=== PATIENT | female | born 1950 | race Hispanic/Latino ===

== ENCOUNTER 2017-08-05 20:42 | Emergency (ER) | payer OTHER, MEDICARE ==
[~2017-08-05 20:42] MED LIST: AMLO5TAB2 PO; ASCO500C6 PO; CANA1TAB PO; CLON0.5T23 PO; DESI25TA16 PO; GEMF600T3 PO; GLIP5TAB11 PO; LEVO100T12 PO; LISI10TA7 PO; MELO-108 PO; PANT40TA25 PO; PREG75 PO; SAXA5TAB PO; SIMV20TA6 PO; TRAZ-144 PO
[2017-08-05] MEDS ORDERED: ACETAMINOPHEN EXTRA STRENGTH 500 MG TABLET ONE (20:55)
== END 2017-08-05 21:20 | disposition home or self-care (01) ==
LOC: EDH 20:42
DX: J11.1 Influenza due to unidentified influenza virus with other respiratory manifestations (principal); E11.9 Type 2 diabetes mellitus without complications; E78.5 Hyperlipidemia, unspecified; I10 Essential (primary) hypertension; E07.9 Disorder of thyroid, unspecified; Z98.890 Other specified postprocedural states

== ENCOUNTER 2017-11-19 10:27 | Emergency (ER) | payer OTHER, MEDICARE ==
[~2017-11-19 10:27] MED LIST changes: -TRAZ-144 PO; +TRAZ-185 PO
[2017-11-19] MEDS ORDERED: ONDANSETRON HCL MDV 20ML 2 MG/ML VIAL ONE (10:50)
[2017-11-19] MEDS ORDERED: MORPHINE SULFATE 4 MG/1ML SYG ONE (10:51)
[2017-11-19 11:28] LABS: CREATININE 0.7 mg/dL (0.5-1.5); POTASSIUM 4.5 mmol/L (3.5-5.1)
== END 2017-11-19 12:38 | disposition home or self-care (01) ==
LOC: EDH 10:27
DX: S73.102A Unspecified sprain of left hip, initial encounter (principal); S83.92XA Sprain of unspecified site of left knee, initial encounter; M62.838 Other muscle spasm; E11.9 Type 2 diabetes mellitus without complications; E78.5 Hyperlipidemia, unspecified; I10 Essential (primary) hypertension; E07.9 Disorder of thyroid, unspecified; Z98.890 Other specified postprocedural states; W18.39XA Other fall on same level, initial encounter; Y93.01 Activity, walking, marching and hiking; Y92.89 Other specified places as the place of occurrence of the external cause; Y99.8 Other external cause status
CPT/HCPCS: 36415; 73502; 73562; 80048; 96374; 96375; 99285; J2270

== ENCOUNTER 2018-04-21 13:18 | Emergency (ER) | payer OTHER, MEDICARE ==
[~2018-04-21 13:18] MED LIST changes: -AMLO5TAB2 PO; +AMLO5TAB7 PO; -GEMF600T3 PO; +GEMF600T4 PO
[2018-04-21 14:18] LABS: APPEARANCE,URINE Clear (CLEAR); BILIRUBIN,URINE Negative (NEGATIVE); COLOR,URINE Yellow (YELLOW); GLUCOSE, URINE (UA) >=1000 mg/dL (NEGATIVE); KETONES,URINE Negative (NEGATIVE); LEUKOCYTE ESTERASE ,URINE Negative (NEGATIVE); NITRATE,URINE Positive (NEGATIVE); OCCULT BLOOD,URINE Negative (NEGATIVE); PH,URINE 5.5 (5.0-8.0); PROTEIN,URINE Negative (NEGATIVE); UROBILINOGEN,URINE 0.2 mg/dL (0.2-1.0)
[2018-04-21] MEDS ORDERED: KETOROLAC TROMETHAMINE 30MG/ML ONE (14:27)
[2018-04-21 14:48] LABS: BACTERIA,URINE Few /HPF (None Seen); RBC,URINE None Seen /HPF (0-1); SQUAMOUS EPITHELIAL CELL,UR 0-2 /HPF (0-2); WBC,URINE 0-1 /HPF (0-1)
== END 2018-04-21 14:34 | disposition home or self-care (01) ==
LOC: EDH 13:18
DX: N39.0 Urinary tract infection, site not specified (principal); E11.9 Type 2 diabetes mellitus without complications; K21.9 Gastro-esophageal reflux disease without esophagitis; E78.5 Hyperlipidemia, unspecified; M19.90 Unspecified osteoarthritis, unspecified site; I10 Essential (primary) hypertension; Z98.890 Other specified postprocedural states
CPT/HCPCS: 81001; 96372; 99283; J1885

== ENCOUNTER → 2018-06-23 | Outpatient (CLI) | payer MEDICARE | END | disposition home or self-care (01) | LOC: RAH 09:06 | PROVIDERS: ATTEND Family Medicine | DX: Z12.31 Encounter for screening mammogram for malignant neoplasm of breast (principal) | CPT/HCPCS: 77067 ==

== ENCOUNTER 2018-09-07 09:00 | Emergency (ER) | payer MEDICARE ==
[~2018-09-07 09:00] MED LIST changes: -AMLO5TAB7 PO; +AMLO5TAB9 PO; -GEMF600T4 PO; +GEMF600T5 PO
[2018-09-07 09:24] LABS: BASOPHILS % (AUTO) 0.8 % (0.0-5.0); EOSINOPHILS % (AUTO) 2.1 % (0.0-8.0); LYMPHOCYTES % (AUTO) 26.6 % (21.0-51.0); MEAN CORPUSCULAR HEMOGLOBIN 30.8 pg (27.0-33.0); MEAN CORPUSCULAR HGB CONC 34.6 g/dL (32.0-36.0); MEAN CORPUSCULAR VOLUME 89.2 fL (79-99); MONOCYTES % (AUTO) 10.5 % (3.0-13.0); NUCLEATED RED BLOOD CELLS 0.1 % (0.0-0.19); PLATELET COUNT (AUTO) 187 K/uL (130-400); RED BLOOD CELL COUNT(AUTO) 4.15 MIL/uL (4.00-5.50); RED CELL DISTRIBUTION WIDTH 13.1 % (11.0-15.5); WHITE BLOOD COUNT (AUTO) 5.6 K/uL (4.8-10.8)
[2018-09-07 09:31] LABS: CREATININE 0.8 mg/dL (0.5-1.5); POTASSIUM 4.1 mmol/L (3.5-5.1)
[2018-09-07 09:36] LABS: ALBUMIN 3.6 g/dL (3.5-5.0); BILIRUBIN,TOTAL 0.7 mg/dL (0.2-1.0)
[2018-09-07] MEDS ORDERED: DEXAMETHASONE SOD PHOSPHATE 10MG/ML 1ML VIAL ONE (10:09)
[2018-09-07] MEDS ORDERED: BENZONATATE 100 MG CAPSULE PO ONE (10:09)
[2018-09-07] MEDS ORDERED: IPRATROPIUM/ALBUTEROL SULFATE 3 ML SOLUTION IH ONE (10:21)
[2018-09-07] MEDS ORDERED: CEFTRIAXONE SODIUM 1 GM ONE (10:38)
[2018-09-07] MEDS ORDERED: SODIUM CHLORIDE 0.9% 100 ML IV ONE (10:38)
[2018-09-07] MEDS ORDERED: AZITHROMYCIN 250 MG TABLET PO ONE (10:38)
== END 2018-09-07 12:23 | disposition home or self-care (01) ==
LOC: EDH 09:00
DX: S46.012A Strain of muscle(s) and tendon(s) of the rotator cuff of left shoulder, initial encounter (principal); S46.011A Strain of muscle(s) and tendon(s) of the rotator cuff of right shoulder, initial encounter; J18.9 Pneumonia, unspecified organism; E11.65 Type 2 diabetes mellitus with hyperglycemia; I10 Essential (primary) hypertension; E78.5 Hyperlipidemia, unspecified; K21.9 Gastro-esophageal reflux disease without esophagitis; M19.90 Unspecified osteoarthritis, unspecified site; E07.9 Disorder of thyroid, unspecified; Z79.4 Long term (current) use of insulin; Z98.890 Other specified postprocedural states; X58.XXXA Exposure to other specified factors, initial encounter; Y93.89 Activity, other specified; Y92.89 Other specified places as the place of occurrence of the external cause; Y99.8 Other external cause status
CPT/HCPCS: 36415; 71045; 80053; 83605; 85025; 87804 ×2; 94640; 96374; 96375; 99284; J0696; J1100; 96376

== ENCOUNTER → 2018-10-10 | Outpatient (CLI) | payer OTHER, MEDICARE | END | disposition home or self-care (01) | LOC: RAH 11:30 | PROVIDERS: ATTEND Family Medicine | DX: M19.011 Primary osteoarthritis, right shoulder (principal); M25.411 Effusion, right shoulder; M65.821 Other synovitis and tenosynovitis, right upper arm; M75.91 Shoulder lesion, unspecified, right shoulder | CPT/HCPCS: 73221 ==

== ENCOUNTER 2019-04-18 22:58 | Emergency (ER) | payer OTHER, MEDICARE ==
[~2019-04-18 22:58] MED LIST changes: +ATOR20TA PO; +CALC-20 PO; -CLON0.5T23 PO; -GEMF600T5 PO; +HYDR-4457 PO; +INSLAN SQ; +MIRA50TA PO; -PANT40TA25 PO; -PREG75 PO; +PRIM1POW PO; +RANI150C4 PO; -SIMV20TA6 PO; -TRAZ-185 PO; +VITA1CAP50 PO
[2019-04-19] MEDS ORDERED: DiphenhydrAMINE HCL 50 MG/ML VIAL ONE (00:10)
[2019-04-19] MEDS ORDERED: PROCHLORPERAZINE EDISYLATE 10 MG/2 ML VIAL ONE (00:11)
[2019-04-19] MEDS ORDERED: SODIUM CHLORIDE 0.9% 1000ML 1,000 ML IV ONE (00:12)
[2019-04-19 00:24] LABS: EOSINOPHILS % (AUTO) 4.6 % (0.0-8.0); HEMATOCRIT 33.8 % (36-48); LYMPHOCYTES % (AUTO) 39.7 % (21.0-51.0); MEAN CORPUSCULAR HGB CONC 34.2 g/dL (32.0-36.0); MEAN CORPUSCULAR VOLUME 87.7 fL (79-99); NEUTROPHILS % (AUTO) 46.7 % (40.0-77.0); NUCLEATED RED BLOOD CELLS 0.1 % (0.0-0.19); PLATELET COUNT (AUTO) 193 K/uL (130-400); RED BLOOD CELL COUNT(AUTO) 3.85 MIL/uL (4.00-5.50); RED CELL DISTRIBUTION WIDTH 13.5 % (11.0-15.5); WHITE BLOOD COUNT (AUTO) 5.6 K/uL (4.8-10.8)
[2019-04-19 00:45] LABS: CREATININE 0.9 mg/dL (0.5-1.5); POTASSIUM 3.9 mmol/L (3.5-5.1)
[2019-04-19 00:50] LABS: ALBUMIN 3.6 g/dL (3.5-5.0); BILIRUBIN,TOTAL 0.4 mg/dL (0.2-1.0); TOTAL PROTEIN, SERUM 8.1 g/dL (6.0-8.3)
== END 2019-04-19 01:49 | disposition home or self-care (01) ==
LOC: EDH 22:58
DX: G43.909 Migraine, unspecified, not intractable, without status migrainosus (principal); K21.9 Gastro-esophageal reflux disease without esophagitis; E11.9 Type 2 diabetes mellitus without complications; E78.5 Hyperlipidemia, unspecified; I10 Essential (primary) hypertension; M19.90 Unspecified osteoarthritis, unspecified site; E07.9 Disorder of thyroid, unspecified; Z79.4 Long term (current) use of insulin
CPT/HCPCS: 36415; 70450; 71045; 80053; 84484; 85025; 93005; 96374; 96375; 99285; J0780; J1200; J7030

== ENCOUNTER → 2020-01-18 | Outpatient (CLI) | payer OTHER, MEDICARE ==
[~2020-01-18] MED LIST changes: +CALC-1219 PO; -CALC-20 PO
== END | disposition home or self-care (01) ==
LOC: OIH 10:22
PROVIDERS: ATTEND Family Medicine
DX: M47.816 Spondylosis without myelopathy or radiculopathy, lumbar region (principal); M47.818 Spondylosis without myelopathy or radiculopathy, sacral and sacrococcygeal region; M48.061 Spinal stenosis, lumbar region without neurogenic claudication; M41.86 Other forms of scoliosis, lumbar region; M25.78 Osteophyte, vertebrae; G95.89 Other specified diseases of spinal cord
CPT/HCPCS: 72100; 72220

== ENCOUNTER → 2020-10-01 | Outpatient (CLI) | payer OTHER, MEDICARE ==
[~2020-10-01] MED LIST changes: +AMLO-257 PO; -AMLO5TAB9 PO; +LISI10TA24 PO; -LISI10TA7 PO
== END | disposition home or self-care (01) ==
LOC: RAH 09:30
PROVIDERS: ATTEND Family Medicine
DX: Z12.31 Encounter for screening mammogram for malignant neoplasm of breast (principal)
CPT/HCPCS: 77067

== ENCOUNTER 2021-02-24 15:04 | Observation (INO) | payer OTHER, MEDICARE ==
[~2021-02-24] VITALS: Ht 147.3 cm; Wt 87.1 kg
[2021-02-24 15:09] VITALS: BP 119/42
[2021-02-24] MEDS ORDERED: 0.9%NACL 1000ML 1,000 ML IV ONE (16:00)
[2021-02-24] MEDS ORDERED: ACETAMINOPHEN 325 MG TAB PO ONE (16:00)
[2021-02-24 16:03] LABS: BASOPHILS % (AUTO) 0.3 % (0.0-5.0); EOSINOPHILS % (AUTO) 0.2 % (0.0-8.0); HEMATOCRIT 36.9 % (36-48); LYMPHOCYTES % (AUTO) 30.1 % (21.0-51.0); MEAN CORPUSCULAR HEMOGLOBIN 30.7 pg (27.0-33.0); MEAN CORPUSCULAR HGB CONC 33.6 g/dL (32.0-36.0); MEAN CORPUSCULAR VOLUME 91.3 fL (79-99); MONOCYTES % (AUTO) 6.6 % (3.0-13.0); NEUTROPHILS % (AUTO) 62.5 % (40.0-77.0); PLATELET COUNT (AUTO) 150 K/uL (130-400); RED BLOOD CELL COUNT(AUTO) 4.04 MIL/uL (4.00-5.50); RED CELL DISTRIBUTION WIDTH 13.8 % (11.0-15.5)
[2021-02-24 16:12] LABS: CREATININE 1.2 mg/dL (0.5-1.5); POTASSIUM 4.4 mmol/L (3.5-5.1)
[2021-02-24 16:15] LABS: INR 1.02 (0.85-1.15); PROTHROMBIN TIME 11.1 SEC (9.6-11.6)
[2021-02-24 16:16] LABS: PARTIAL THROMBOPLASTIN TIME 31.3 SEC (26.3-35.5)
[2021-02-24 16:17] LABS: ALBUMIN 3.4 g/dL (3.5-5.0); BILIRUBIN,TOTAL 0.6 mg/dL (0.2-1.0); TOTAL PROTEIN, SERUM 7.7 g/dL (6.0-8.3)
[2021-02-24 18:00] VITALS: BP 105/41
[2021-02-24] MEDS ORDERED: ONDANSETRON 4MG INJ IV PRN (18:30)
[2021-02-24] MEDS ORDERED: ACETAMINOPHEN 325 MG TAB PO PRN ×2 (18:30)
[2021-02-24] MEDS ORDERED: LACTULOSE 20 GM/30 ML UDCUP PO PRN (18:30)
[2021-02-24] MEDS ORDERED: DOXYCYCLINE 100MG+NS 250ML 250 ML IV SCH (18:30)
[2021-02-24] MEDS ORDERED: CEFTRIAXONE 1G VIAL IV SCH (18:30)
[2021-02-24] MEDS ORDERED: MAG/ALUM/SIMETH 30 ML UDCUP PO PRN (18:30)
[2021-02-24] MEDS ORDERED: ZOLPIDEM TARTRATE 5 MG TAB PO PRN (18:30)
[2021-02-24] MEDS ORDERED: NITROGLYCERIN 0.4 MG SL TAB SL PRN (18:30)
[2021-02-24] MEDS ORDERED: GUAIFENESIN-DM 200/20 MG 10 ML PO PRN (18:30)
[2021-02-24 19:00] VITALS: BP 113/40
[2021-02-24] MEDS ORDERED: DEXTROSE 50%-WATER 50 ML DISP.SYRIN IV PRN (19:00)
[2021-02-24] MEDS ORDERED: KCL 20 MEQ ERTAB PO PRN (19:00)
[2021-02-24] MEDS ORDERED: GLUCAGON 1MG KIT 1 MG ML IM PRN (19:00)
[2021-02-24] MEDS ORDERED: POTASSIUM CHLORIDE 10MEQ/100ML 100 ML IV PRN (19:00)
[2021-02-24] MEDS ORDERED: POTASSIUM CHLORIDE 10% ELIXIR 20 MEQ/15 ML UDCUP PO PRN (19:00)
[2021-02-24] MEDS ORDERED: LABETALOL 20MG SYG IV PRN (19:00)
[2021-02-24 20:35] LABS: ABG BASE EXCESS -3.7 mmol/L (-2.0-3.0); ABG HCO3 20.5 mmol/L (21.0-28.0); ABG OXYGEN SATURATION 95.2 % (95.0-99.0); ABG PCO2 35 mmHg (32-45)
[2021-02-24 22:00] VITALS: BP 112/5
[2021-02-24] MEDS: IPRATROPIUM/ALBUTEROL SULFATE 3 ML SOLUTION IH SCH (22:00)
[2021-02-24] MEDS: SOLU-MEDROL 40MG VIAL IVP SCH (23:00)
[2021-02-24] MEDS: ATORVASTATIN 20 MG TABLET PO SCH (23:00)
[2021-02-24] MEDS: BENZONATATE 100 MG CAPSULE PO SCH (23:00)
[2021-02-24] MEDS: 0.9% NACL 250ML 250 ML IV SCH (23:00)
[2021-02-24] MEDS: DOXYCYCLINE 100MG+NS 250ML IV SCH (23:14)
[2021-02-25] VITALS (7 sets, daily range): BP systolic 110–132; BP diastolic 44–76
[2021-02-25] MEDS: SOLU-MEDROL 40MG VIAL IVP SCH ×2 (01:00→07:32)
[2021-02-25] MEDS: IPRATROPIUM/ALBUTEROL SULFATE 3 ML SOLUTION IH SCH ×6 (01:18→22:59)
[2021-02-25 06:21] LABS: BASOPHILS % (AUTO) 0.3 % (0.0-5.0); HEMATOCRIT 37.8 % (36-48); LYMPHOCYTES % (AUTO) 24.8 % (21.0-51.0); MEAN CORPUSCULAR HEMOGLOBIN 29.9 pg (27.0-33.0); MEAN CORPUSCULAR HGB CONC 32.8 g/dL (32.0-36.0); MEAN CORPUSCULAR VOLUME 91.1 fL (79-99); MONOCYTES % (AUTO) 2.2 % (3.0-13.0); NEUTROPHILS % (AUTO) 72.4 % (40.0-77.0); PLATELET COUNT (AUTO) 138 K/uL (130-400); RED BLOOD CELL COUNT(AUTO) 4.15 MIL/uL (4.00-5.50); RED CELL DISTRIBUTION WIDTH 13.4 % (11.0-15.5); WHITE BLOOD COUNT (AUTO) 3.2 K/uL (4.8-10.8)
[2021-02-25 06:26] LABS: HEMOGLOBIN A1C 7.7 % (4.0-6.0)
[2021-02-25 06:43] LABS: ALBUMIN 3.2 g/dL (3.5-5.0); BILIRUBIN,TOTAL 0.5 mg/dL (0.2-1.0); CREATININE 0.9 mg/dL (0.5-1.5); CRP QUANTITATIVE 38.7 mg/L (0.00-9.0); POTASSIUM 4.5 mmol/L (3.5-5.1); THYROID STIMULATING HORMONE 0.69 uIU/mL (0.36-3.74); TOTAL PROTEIN, SERUM 7.8 g/dL (6.0-8.3)
[2021-02-25] MEDS: DOXYCYCLINE 100MG+NS 250ML IV SCH (07:32)
[2021-02-25] MEDS: 0.9% NACL 250ML 250 ML IV SCH (07:32)
[2021-02-25] MEDS: FAMOTIDINE 20MG VIAL IV SCH (08:34)
[2021-02-25] MEDS: BENZONATATE 100 MG CAPSULE PO SCH ×3 (08:34→19:54)
[2021-02-25] MEDS: ENOXAPARIN SODIUM 40 MG/0.4 ML SYRINGE SQ SCH (08:34)
[2021-02-25] MEDS ORDERED: FAMO20TA8 PO (08:43)
[2021-02-25] MEDS ORDERED: LEVO112T7 PO (08:43)
[2021-02-25] MEDS ORDERED: CHOL4PAC21 PO (08:43)
[2021-02-25] MEDS ORDERED: CARB1TAB23 PO (08:43)
[2021-02-25] MEDS ORDERED: ERGO500093 PO (08:43)
[2021-02-25] MEDS: CARBIDOPA PO SCH ×3 (12:07→20:09)
[2021-02-25] MEDS: LEVODOPA PO SCH ×3 (12:07→20:09)
[2021-02-25] MEDS: ATORVASTATIN 20 MG TABLET PO SCH (19:55)
[2021-02-25] MEDS: INSULIN HUMULIN R 100 UNIT/ML 3ML SQ SCH (20:40)
[2021-02-25] MEDS ORDERED: INSULIN GLARGINE 100 UNITS/ML 10 ML VIAL SQ SCH (21:00)
[2021-02-25] MEDS ORDERED: DOXYCYCLINE 100MG+NS 250ML 250 ML IV SCH (21:00)
[2021-02-25] MEDS ORDERED: DOXYCYCLINE 100MG+NS 250ML IV SCH (21:00)
[2021-02-25] MEDS ORDERED: SOLU-MEDROL 125MG VIAL IVP SCH (21:00)
[2021-02-25] MEDS ORDERED: INSULIN HUMULIN R 100 UNIT/ML 3ML SQ ONE (23:00)
[2021-02-25] MEDS ORDERED: CEFTRIAXONE 1G VIAL IV SCH (23:00)
[2021-02-25] MEDS ORDERED: INSULIN LISPRO 100 UNIT/ML 3ML SQ SCH (23:00)
[2021-02-26] MEDS: IPRATROPIUM/ALBUTEROL SULFATE 3 ML SOLUTION IH SCH ×4 (02:09→15:23)
[2021-02-26 03:48] VITALS: BP 118/48
[2021-02-26 04:37] LABS: HEMATOCRIT 35.6 % (36-48); MEAN CORPUSCULAR HEMOGLOBIN 29.8 pg (27.0-33.0); MEAN CORPUSCULAR HGB CONC 33.4 g/dL (32.0-36.0); RED CELL DISTRIBUTION WIDTH 13.2 % (11.0-15.5); WHITE BLOOD COUNT (AUTO) 6.6 K/uL (4.8-10.8)
[2021-02-26 04:57] LABS: MAGNESIUM 1.8 mg/dL (1.80-2.40); POTASSIUM 3.6 mmol/L (3.5-5.1)
[2021-02-26] MEDS: MAGNESIUM 2GM PREMIX 50ML 50 ML IV PRN ×3 (05:30→07:41)
[2021-02-26] MEDS: INSULIN HUMULIN R 100 UNIT/ML 3ML SQ SCH ×2 (06:02→13:19)
[2021-02-26 08:00] VITALS: BP 120/88
[2021-02-26] MEDS: LEVODOPA PO SCH ×2 (09:00→13:00)
[2021-02-26] MEDS ORDERED: LEVOTHYROXINE 112 MCG TABLET PO SCH (09:00)
[2021-02-26] MEDS: CARBIDOPA PO SCH ×2 (09:00→13:00)
[2021-02-26] MEDS ORDERED: SOLU-MEDROL 40MG VIAL IVP SCH (09:00)
[2021-02-26] MEDS: BENZONATATE 100 MG CAPSULE PO SCH ×2 (09:23→13:18)
[2021-02-26] MEDS: ENOXAPARIN SODIUM 40 MG/0.4 ML SYRINGE SQ SCH (09:24)
[2021-02-26] MEDS: FAMOTIDINE 20MG VIAL IV SCH (09:24)
[2021-02-26 10:40] VITALS: BP 120/88
[2021-02-26 12:00] VITALS: BP 118/55
[2021-02-26] MEDS ORDERED: CEFTRIAXONE 1G VIAL IVP SCH (12:30)
[2021-02-26] MEDS ORDERED: PRED20TA3 PO (14:14)
[2021-02-26] MEDS ORDERED: ASPI-1443 PO (14:14)
[2021-02-26] MEDS ORDERED: AMOX-429 PO (14:14)
[2021-02-26 15:38] LABS: APPEARANCE,URINE CLOUDY (CLEAR); BILIRUBIN,URINE NEGATIVE (NEGATIVE); COLOR,URINE YELLOW (YELLOW); GLUCOSE, URINE (UA) >=1000 mg/dL (NEGATIVE); KETONES,URINE NEGATIVE (NEGATIVE); LEUKOCYTE ESTERASE ,URINE NEGATIVE (NEGATIVE); NITRATE,URINE NEGATIVE (NEGATIVE); OCCULT BLOOD,URINE NEGATIVE (NEGATIVE); PH,URINE 5.5 (5.0-8.0); PROTEIN,URINE TRACE mg/dL (NEGATIVE); UROBILINOGEN,URINE 0.2 mg/dL (0.2-1.0)
[2021-02-26 15:53] LABS: BACTERIA,URINE None Seen /HPF (None Seen); RBC,URINE None Seen /HPF (0-1); YEAST,URINE BUDDING Moderate /HPF (None Seen)
[2021-02-26 16:00] VITALS: BP 121/59
[2021-03-04] MEDS ORDERED: ERGOCALCIFEROL (VITAMIN D2) 50,000 UNIT CAPSULE PO SCH (09:00)
== END 2021-02-26 17:49 | disposition home or self-care (01) ==
LOC: EDH 15:04 → EDHIP 17:53 → 2AH 02-25 08:39
PROVIDERS: ADMIT Internal Medicine Critical Care Medicine; ATTEND Internal Medicine Critical Care Medicine
DX: U07.1 COVID-19 (principal); R25.1 Tremor, unspecified; E11.65 Type 2 diabetes mellitus with hyperglycemia; E78.00 Pure hypercholesterolemia, unspecified; I10 Essential (primary) hypertension; E03.9 Hypothyroidism, unspecified; J06.9 Acute upper respiratory infection, unspecified; R53.1 Weakness; B96.20 Unspecified Escherichia coli [E. coli] as the cause of diseases classified elsewhere; N39.0 Urinary tract infection, site not specified; R09.02 Hypoxemia; Z90.49 Acquired absence of other specified parts of digestive tract; Z79.899 Other long term (current) drug therapy; Z98.890 Other specified postprocedural states; Z79.4 Long term (current) use of insulin; Z79.890 Hormone replacement therapy
CPT/HCPCS: 36415 ×3; 36600; 71045; 71250; 80048; 80053 ×2; 81001; 82550; 82728; 82803; 82948 ×6; 83036; 83605; 83615; 83735; 83880; 84145; 84443; 85025 ×2; 85027; 85378; 85384; 85610; 85730; 86140; 86900; 86901; 87040 ×2; 87077; 87088; 87186; 87635; 87804 ×2; 93005; 93970; 94640 ×9; 94664; 94760 ×2; 96361; 96365; 96366 ×2; 96367; 96372 ×2; 96375 ×2; 96376 ×2; 99285; C9803; G0378 ×45; J0696 ×2; J1650 ×2; J1815 ×4; J2920 ×3; J3475; J3490 ×4

== ENCOUNTER 2021-11-09 11:22 | Emergency (ER) | payer OTHER, MEDICARE ==
[~2021-11-09] VITALS: Ht 149.9 cm; Wt 78.9 kg
[~2021-11-09 11:22] MED LIST changes: -AMLO-257 PO; +AMOX-429 PO; -ASCO500C6 PO; +ASPI-1443 PO; -ATOR20TA PO; -CALC-1219 PO; -CANA1TAB PO; +CARB1TAB23 PO; -DESI25TA16 PO; +ERGO500093 PO; +FAMO20TA8 PO; -GLIP5TAB11 PO; -HYDR-4457 PO; -INSLAN SQ; -LEVO100T12 PO; +LEVO112T7 PO; -LISI10TA24 PO; -MELO-108 PO; -MIRA50TA PO; +PRED20TA3 PO; -PRIM1POW PO; -RANI150C4 PO; -SAXA5TAB PO; -VITA1CAP50 PO
[2021-11-09 11:53] LABS: BASOPHILS % (AUTO) 0.2 % (0.0-5.0); EOSINOPHILS % (AUTO) 0.6 % (0.0-8.0); HEMATOCRIT 36.9 % (36-48); LYMPHOCYTES % (AUTO) 30.3 % (21.0-51.0); MEAN CORPUSCULAR HEMOGLOBIN 29.7 pg (27.0-33.0); MEAN CORPUSCULAR HGB CONC 33.6 g/dL (32.0-36.0); MEAN CORPUSCULAR VOLUME 88.5 fL (79-99); MONOCYTES % (AUTO) 10.1 % (3.0-13.0); NEUTROPHILS % (AUTO) 58.5 % (40.0-77.0); PLATELET COUNT (AUTO) 199 K/uL (130-400); RED BLOOD CELL COUNT(AUTO) 4.17 MIL/uL (4.00-5.50); RED CELL DISTRIBUTION WIDTH 12.7 % (11.0-15.5); WHITE BLOOD COUNT (AUTO) 8.7 K/uL (4.8-10.8)
[2021-11-09 12:04] LABS: POTASSIUM 4.9 mmol/L (3.5-5.1)
[2021-11-09 12:13] LABS: ALBUMIN 3.3 g/dL (3.5-5.0); BILIRUBIN,TOTAL 0.6 mg/dL (0.2-1.0); TOTAL PROTEIN, SERUM 8.1 g/dL (6.0-8.3)
[2021-11-09] MEDS ORDERED: IPRATROPIUM/ALBUTEROL SULFATE 3 ML SOLUTION IH SCH (12:30)
[2021-11-09] MEDS ORDERED: ALBUTEROL 0.083% 2.5 MG/3 ML INH IH SCH (13:00)
[2021-11-09] MEDS ORDERED: GUAIFENESIN-CODEINE 5 ML SYRUP PO SCH (14:00)
[2021-11-09] MEDS ORDERED: PRED5SOL PO (14:44)
[2021-11-09] MEDS ORDERED: AUD IH (14:44)
[2021-11-09] MEDS ORDERED: DOXY100C5 PO (14:44)
[2021-11-09] MEDS ORDERED: BENZ-39 PO (14:45)
[2021-11-09 15:06] VITALS: BP 145/84
== END 2021-11-09 15:07 | disposition home or self-care (01) ==
LOC: EDH 11:22
DX: J06.9 Acute upper respiratory infection, unspecified (principal); Z20.822 Contact with and (suspected) exposure to COVID-19; E11.9 Type 2 diabetes mellitus without complications; E78.00 Pure hypercholesterolemia, unspecified; I10 Essential (primary) hypertension; E05.90 Thyrotoxicosis, unspecified without thyrotoxic crisis or storm; G20 Parkinson's disease; Z79.82 Long term (current) use of aspirin; Z79.899 Other long term (current) drug therapy; Z98.890 Other specified postprocedural states
CPT/HCPCS: 36415; 71045; 80053; 83880; 84484; 85025; 87635; 87804 ×2; 87880; 93005; 94640 ×2; 99285; C9803

== ENCOUNTER → 2022-09-13 | Outpatient (CLI) | payer OTHER, MEDICARE ==
[~2022-09-13] MED LIST changes: +AUD IH; +BENZ-39 PO; -CARB1TAB23 PO; +CARB1TAB38 PO; +DOXY100C5 PO; +PRED5SOL PO
== END | disposition home or self-care (01) ==
LOC: SHCH 14:00
PROVIDERS: ATTEND Internal Medicine
DX: R07.9 Chest pain, unspecified (principal); I10 Essential (primary) hypertension; E78.5 Hyperlipidemia, unspecified; E11.9 Type 2 diabetes mellitus without complications
CPT/HCPCS: 93306

== ENCOUNTER → 2022-09-17 | Outpatient (CLI) | payer OTHER, MEDICARE ==
[~2022-09-17] MED LIST changes: +REGADENOSON 0.4 MG/5 ML PF SYG IVP SCH
== END | disposition home or self-care (01) ==
LOC: SHCH 08:01
PROVIDERS: ATTEND Internal Medicine
DX: R94.39 Abnormal result of other cardiovascular function study (principal); R07.9 Chest pain, unspecified
CPT/HCPCS: 78452; 96374; 93017; J2785; A9500 ×2

== ENCOUNTER 2022-10-15 15:15 | Emergency (ER) | payer OTHER, MEDICARE ==
[~2022-10-15] VITALS: Ht 149.9 cm; Wt 85.7 kg
[~2022-10-15 15:15] MED LIST changes: -REGADENOSON 0.4 MG/5 ML PF SYG IVP SCH
[2022-10-15 15:18] VITALS: BP 162/78
[2022-10-15 16:21] LABS: BASOPHILS % (AUTO) 0.5 % (0.0-5.0); HEMATOCRIT 35.3 % (36-48); LYMPHOCYTES % (AUTO) 38.4 % (21.0-51.0); MEAN CORPUSCULAR HEMOGLOBIN 30.1 pg (27.0-33.0); MEAN CORPUSCULAR VOLUME 88.5 fL (79-99); NEUTROPHILS % (AUTO) 48.9 % (40.0-77.0); PLATELET COUNT (AUTO) 188 K/uL (130-400); RED BLOOD CELL COUNT(AUTO) 3.99 MIL/uL (4.00-5.50); RED CELL DISTRIBUTION WIDTH 13.2 % (11.0-15.5); WHITE BLOOD COUNT (AUTO) 5.5 K/uL (4.8-10.8)
[2022-10-15 16:42] LABS: ALBUMIN 3.4 g/dL (3.5-5.0); POTASSIUM 4.1 mmol/L (3.5-5.1); TOTAL PROTEIN, SERUM 7.7 g/dL (6.0-8.3)
[2022-10-15 16:55] LABS: APPEARANCE,URINE CLEAR (CLEAR); BILIRUBIN,URINE NEGATIVE (NEGATIVE); COLOR,URINE COLORLESS (YELLOW); GLUCOSE, URINE (UA) >=1000 mg/dL (NEGATIVE); KETONES,URINE NEGATIVE (NEGATIVE); LEUKOCYTE ESTERASE ,URINE 75 Leu/uL (NEGATIVE); NITRATE,URINE NEGATIVE (NEGATIVE); OCCULT BLOOD,URINE MODERATE (NEGATIVE); PH,URINE 5.5 (5.0-8.0); PROTEIN,URINE NEGATIVE (NEGATIVE); UROBILINOGEN,URINE 0.2 mg/dL (0.2-1.0)
[2022-10-15] MEDS ORDERED: 0.9%NACL 1000ML 1,000 ML IV ONE (17:00)
[2022-10-15 17:05] LABS: BACTERIA,URINE FEW /HPF (None Seen); MUCUS,URINE RARE LPF (None Seen); SQUAMOUS EPITHELIAL CELL,UR RARE /HPF (0-2); WBC,URINE 26-50 /HPF (0-1)
[2022-10-15 17:22] LABS: ABG BASE EXCESS -0.8 mmol/L (-2.0-3.0); ABG HCO3 23.6 mmol/L (21.0-28.0); ABG OXYGEN SATURATION 96.5 % (95.0-99.0); ABG PCO2 38 mmHg (32-45)
== END 2022-10-15 19:14 | disposition home or self-care (01) ==
LOC: EDH 15:15
DX: E11.65 Type 2 diabetes mellitus with hyperglycemia (principal); E78.00 Pure hypercholesterolemia, unspecified; I10 Essential (primary) hypertension; E03.9 Hypothyroidism, unspecified; G20 Parkinson's disease; Z79.899 Other long term (current) drug therapy; Z79.82 Long term (current) use of aspirin; Z98.890 Other specified postprocedural states; Z90.49 Acquired absence of other specified parts of digestive tract; Z96.653 Presence of artificial knee joint, bilateral; Z90.710 Acquired absence of both cervix and uterus
CPT/HCPCS: 99284; 96360; 71045; 96361; 84484; 80053; 82803; 85025; 87077; 87088; 87186; 82010; 81001; 36415; 93005; 36600; 82948; J7030

== ENCOUNTER → 2022-11-05 | Outpatient (CLI) | payer OTHER, MEDICARE | END | disposition home or self-care (01) | LOC: RAH 12:52 | PROVIDERS: ATTEND Family Medicine | DX: Z12.31 Encounter for screening mammogram for malignant neoplasm of breast (principal) | CPT/HCPCS: 77067 ==

== ENCOUNTER 2023-10-15 11:08 | Emergency (ER) | payer OTHER, MEDICARE ==
[~2023-10-15] VITALS: Ht 149.9 cm; Wt 83.9 kg
[~2023-10-15 11:08] MED LIST changes: -AMOX-429 PO; -DOXY100C5 PO; -PRED20TA3 PO; -PRED5SOL PO
[2023-10-15 12:28] LABS: BASOPHILS # (AUTO) 0.04 K/uL (0.00-0.20); BASOPHILS % (AUTO) 0.6 % (0.0-5.0); EOSINOPHILS # (AUTO) 0.21 K/uL (0.00-0.70); EOSINOPHILS % (AUTO) 3.4 % (0.0-8.0); HEMATOCRIT 31.3 % (36-48); IMMATURE GRANULOCYTE ABSOLUTE 0.05 K/uL (0-1); LYMPHOCYTES # (AUTO) 2.3 K/uL (1.0-4.8); LYMPHOCYTES % (AUTO) 36.5 % (21.0-51.0); MEAN CORPUSCULAR HEMOGLOBIN 30.9 pg (27.0-33.0); MEAN CORPUSCULAR HGB CONC 34.8 g/dL (32.0-36.0); MEAN CORPUSCULAR VOLUME 88.7 fL (79-99); MONOCYTES # (AUTO) 0.6 K/uL (0.1-1.0); MONOCYTES % (AUTO) 9.3 % (3.0-13.0); NEUTROPHILS # (AUTO) 3.1 K/uL (1.8-7.7); NEUTROPHILS % (AUTO) 49.4 % (40.0-77.0); PLATELET COUNT (AUTO) 275 K/uL (130-400); RED BLOOD CELL COUNT(AUTO) 3.53 MIL/uL (4.00-5.50); RED CELL DISTRIBUTION WIDTH 12.2 % (11.0-15.5); WHITE BLOOD COUNT (AUTO) 6.3 K/uL (4.8-10.8)
[2023-10-15 12:41] LABS: CREATININE 0.7 mg/dL (0.5-1.5); POTASSIUM 3.8 mmol/L (3.5-5.1)
[2023-10-15 12:43] LABS: INR 0.97 (0.85-1.15); PROTHROMBIN TIME 11.3 SEC (9.6-11.6)
[2023-10-15 12:44] LABS: PARTIAL THROMBOPLASTIN TIME 30.7 SEC (26.3-35.5)
[2023-10-15 13:04] LABS: APPEARANCE,URINE CLOUDY (CLEAR); BILIRUBIN,URINE SMALL mg/dL (NEGATIVE); COLOR,URINE RED (YELLOW); GLUCOSE, URINE (UA) NEGATIVE (NEGATIVE); KETONES,URINE NEGATIVE (NEGATIVE); LEUKOCYTE ESTERASE ,URINE LARGE Leu/uL (NEGATIVE); NITRATE,URINE POSITIVE (NEGATIVE); OCCULT BLOOD,URINE LARGE (NEGATIVE); PH,URINE 6.5 (5.0-8.0); PROTEIN,URINE 100 mg/dL (NEGATIVE)
[2023-10-15 13:20] LABS: ADD UA MICROSCOPIC YES
[2023-10-15 13:23] LABS: BACTERIA,URINE Few /HPF (None Seen); RBC,URINE TNTC /HPF (0-1); SQUAMOUS EPITHELIAL CELL,UR Few /HPF (0-2); WBC,URINE TNTC /HPF (0-1)
[2023-10-15] MEDS: 0.9% NACL 500ML IV.SOLN 500 ML IV ONE (13:31)
[2023-10-15] MEDS ORDERED: CEPH500T PO (15:24)
[2023-10-15 15:25] VITALS: BP 150/64; PULSE 71; RESP 17; O2SAT 96
[2023-10-15] MEDS: CEFTRIAXONE 1G VIAL IVPB ONE (15:38)
== END 2023-10-15 15:53 | disposition home or self-care (01) ==
LOC: EDH 11:08
DX: N13.9 Obstructive and reflux uropathy, unspecified (principal); M19.90 Unspecified osteoarthritis, unspecified site; E11.9 Type 2 diabetes mellitus without complications; E78.00 Pure hypercholesterolemia, unspecified; E03.9 Hypothyroidism, unspecified; Z90.49 Acquired absence of other specified parts of digestive tract
CPT/HCPCS: 99285; 74176; 96374; 96361; 80048; 85025; 85610; 85730; 87088; 81001; 36415; J7040; J0696

== ENCOUNTER 2023-11-01 19:23 | Observation (INO) | payer OTHER, MEDICARE ==
[~2023-11-01] VITALS: Ht 149.9 cm; Wt 81.1 kg
[~2023-11-01 19:23] MED LIST changes: +CEPH500T PO
[2023-11-01 19:59] LABS: BASOPHILS # (AUTO) 0.05 K/uL (0.00-0.20); BASOPHILS % (AUTO) 0.6 % (0.0-5.0); EOSINOPHILS % (AUTO) 2.4 % (0.0-8.0); HEMATOCRIT 31.8 % (36-48); IMMATURE GRANULOCYTE ABSOLUTE 0.03 K/uL (0-1); LYMPHOCYTES # (AUTO) 3.6 K/uL (1.0-4.8); LYMPHOCYTES % (AUTO) 42.3 % (21.0-51.0); MEAN CORPUSCULAR HEMOGLOBIN 30.6 pg (27.0-33.0); MEAN CORPUSCULAR HGB CONC 34.3 g/dL (32.0-36.0); MEAN CORPUSCULAR VOLUME 89.3 fL (79-99); MONOCYTES # (AUTO) 0.8 K/uL (0.1-1.0); MONOCYTES % (AUTO) 8.9 % (3.0-13.0); NEUTROPHILS # (AUTO) 3.8 K/uL (1.8-7.7); NEUTROPHILS % (AUTO) 45.4 % (40.0-77.0); PLATELET COUNT (AUTO) 225 K/uL (130-400); RED BLOOD CELL COUNT(AUTO) 3.56 MIL/uL (4.00-5.50); RED CELL DISTRIBUTION WIDTH 13.4 % (11.0-15.5); WHITE BLOOD COUNT (AUTO) 8.4 K/uL (4.8-10.8)
[2023-11-01 20:07] LABS: CREATININE 0.9 mg/dL (0.5-1.0); POTASSIUM 3.3 mmol/L (3.5-5.1)
[2023-11-01 20:19] LABS: B-TYPE NATRIURETIC PEPTIDE 24 pg/mL (0-100); BILIRUBIN,TOTAL 0.9 mg/dL (0.2-1.0); TOTAL PROTEIN, SERUM 7.5 g/dL (6.0-8.3)
[2023-11-01] MEDS ORDERED: HYDROCODONE/ACETAMINOPHEN 5/325 MG TAB PO PRN (21:00)
[2023-11-01] MEDS ORDERED: ACETAMINOPHEN 650 MG SUPPOSITORY RC PRN (21:00)
[2023-11-01] MEDS ORDERED: ONDANSETRON 4MG INJ IVP PRN (21:00)
[2023-11-01] MEDS: INSULIN HUMULIN R 100 UNIT/ML 3ML SQ SCH (21:00)
[2023-11-01] MEDS ORDERED: ALBUTEROL 0.083% 2.5 MG/3 ML INH IH PRN (21:00)
[2023-11-01] MEDS ORDERED: ACETAMINOPHEN 325 MG TAB PO PRN (21:00)
[2023-11-01] MEDS ORDERED: LACTULOSE 20 GM/30 ML UDCUP PO PRN (21:00)
[2023-11-01] MEDS ORDERED: MORPHINE 2 MG SYG IVP PRN (21:30)
[2023-11-01] MEDS: ENOXAPARIN SODIUM 40 MG/0.4 ML SYRINGE SQ ONE (22:05)
[2023-11-01] MEDS: DOCUSATE SODIUM 100 MG CAP PO SCH (22:05)
[2023-11-02 00:16] VITALS: PULSE 69; RESP 18; O2SAT 98
[2023-11-02 07:35] LABS: BASOPHILS # (AUTO) 0.04 K/uL (0.00-0.20); BASOPHILS % (AUTO) 0.6 % (0.0-5.0); EOSINOPHILS # (AUTO) 0.22 K/uL (0.00-0.70); EOSINOPHILS % (AUTO) 3.3 % (0.0-8.0); HEMATOCRIT 31.9 % (36-48); IMMATURE GRANULOCYTE ABSOLUTE 0.02 K/uL (0-1); LYMPHOCYTES # (AUTO) 2.8 K/uL (1.0-4.8); LYMPHOCYTES % (AUTO) 42.6 % (21.0-51.0); MEAN CORPUSCULAR HEMOGLOBIN 30.4 pg (27.0-33.0); MEAN CORPUSCULAR HGB CONC 33.9 g/dL (32.0-36.0); MEAN CORPUSCULAR VOLUME 89.9 fL (79-99); MONOCYTES # (AUTO) 0.6 K/uL (0.1-1.0); MONOCYTES % (AUTO) 9.7 % (3.0-13.0); NEUTROPHILS # (AUTO) 2.9 K/uL (1.8-7.7); NEUTROPHILS % (AUTO) 43.5 % (40.0-77.0); PLATELET COUNT (AUTO) 205 K/uL (130-400); RED BLOOD CELL COUNT(AUTO) 3.55 MIL/uL (4.00-5.50); RED CELL DISTRIBUTION WIDTH 13.2 % (11.0-15.5); WHITE BLOOD COUNT (AUTO) 6.6 K/uL (4.8-10.8)
[2023-11-02 07:55] VITALS: PULSE 60; RESP 18; O2SAT 95
[2023-11-02 07:55] LABS: B-TYPE NATRIURETIC PEPTIDE 16 pg/mL (0-100)
[2023-11-02 07:57] LABS: CREATININE 0.7 mg/dL (0.5-1.0); MAGNESIUM 1.2 mg/dL (1.80-2.40); PHOSPHORUS 3.6 mg/dL (2.5-4.9); POTASSIUM 4.3 mmol/L (3.5-5.1); THYROID STIMULATING HORMONE 4.8 uIU/mL (0.36-3.74)
[2023-11-02] MEDS: FAMOTIDINE 20MG VIAL IV SCH (09:34)
[2023-11-02] MEDS: ENOXAPARIN SODIUM 40 MG/0.4 ML SYRINGE SQ SCH (09:34)
[2023-11-02] MEDS: POLYETHYLENE GLYCOL 3350 17 GM POWD.PACK PO SCH (09:34)
[2023-11-02] MEDS: MAGNESIUM 2GM PREMIX 50ML 50 ML IV PRN (09:47)
[2023-11-02] MEDS: MAGNESIUM 2GM PREMIX 50ML 50 ML IV ONE (09:47)
[2023-11-02 10:36] VITALS: BP 110/58; PULSE 136; RESP 19
[2023-11-02] MEDS: LACTATED RINGERS 1000ML 1,000 ML IV SCH (15:47)
[2023-11-02] MEDS: NITROGLYCERIN 0.4 MG SL TAB SL PRN (15:47)
[2023-11-02 16:11] VITALS: BP 120/86; PULSE 81; RESP 20
[2023-11-02 18:35] VITALS: PULSE 83; RESP 18; O2SAT 97
[2023-11-02] MEDS ORDERED: IOHEXOL-350 75 ML VIAL IV ONE (18:56)
[2023-11-02 20:00] VITALS: BP 115/73; PULSE 76; RESP 19
[2023-11-02] MEDS: INSULIN HUMULIN R 100 UNIT/ML 3ML SQ SCH (21:23)
[2023-11-03] VITALS (8 sets, daily range): BP systolic 117–134; BP diastolic 50–81; PULSE 58–93; RESP 14–19; O2SAT 96–99
[2023-11-03 05:49] LABS: BASOPHILS # (AUTO) 0.02 K/uL (0.00-0.20); BASOPHILS % (AUTO) 0.3 % (0.0-5.0); EOSINOPHILS # (AUTO) 0.13 K/uL (0.00-0.70); EOSINOPHILS % (AUTO) 1.8 % (0.0-8.0); HEMATOCRIT 31.6 % (36-48); IMMATURE GRANULOCYTE ABSOLUTE 0.03 K/uL (0-1); LYMPHOCYTES # (AUTO) 2.7 K/uL (1.0-4.8); LYMPHOCYTES % (AUTO) 38.9 % (21.0-51.0); MEAN CORPUSCULAR HEMOGLOBIN 30.9 pg (27.0-33.0); MEAN CORPUSCULAR HGB CONC 34.2 g/dL (32.0-36.0); MEAN CORPUSCULAR VOLUME 90.5 fL (79-99); MONOCYTES # (AUTO) 0.7 K/uL (0.1-1.0); MONOCYTES % (AUTO) 9.8 % (3.0-13.0); NEUTROPHILS # (AUTO) 3.4 K/uL (1.8-7.7); NEUTROPHILS % (AUTO) 48.8 % (40.0-77.0); PLATELET COUNT (AUTO) 194 K/uL (130-400); RED BLOOD CELL COUNT(AUTO) 3.49 MIL/uL (4.00-5.50); RED CELL DISTRIBUTION WIDTH 13.2 % (11.0-15.5); WHITE BLOOD COUNT (AUTO) 7.1 K/uL (4.8-10.8)
[2023-11-03 06:06] LABS: ALBUMIN 2.5 g/dL (3.5-5.0); BILIRUBIN,TOTAL 1.1 mg/dL (0.2-1.0); CREATININE 0.7 mg/dL (0.5-1.0); POTASSIUM 3.3 mmol/L (3.5-5.1); TOTAL PROTEIN, SERUM 7.2 g/dL (6.0-8.3)
[2023-11-03] MEDS: KETOROLAC 15MG/ML VIAL (15MG/ML) IV SCH (12:15)
[2023-11-04 03:00] VITALS: BP 130/62; PULSE 65; RESP 16
[2023-11-04 05:31] LABS: HEMATOCRIT 32.1 % (36-48); MEAN CORPUSCULAR HEMOGLOBIN 30.2 pg (27.0-33.0); MEAN CORPUSCULAR HGB CONC 32.7 g/dL (32.0-36.0); MEAN CORPUSCULAR VOLUME 92.2 fL (79-99); RED BLOOD CELL COUNT(AUTO) 3.48 MIL/uL (4.00-5.50); RED CELL DISTRIBUTION WIDTH 13.1 % (11.0-15.5); WHITE BLOOD COUNT (AUTO) 5.7 K/uL (4.8-10.8)
[2023-11-04 05:42] LABS: CREATININE 0.7 mg/dL (0.5-1.0); MAGNESIUM 1.4 mg/dL (1.80-2.40); PHOSPHORUS 3.8 mg/dL (2.5-4.9); POTASSIUM 3.6 mmol/L (3.5-5.1)
[2023-11-04 06:58] VITALS: PULSE 68; RESP 18; O2SAT 100
[2023-11-04 07:45] VITALS: O2SAT 96
[2023-11-04 08:00] VITALS: BP 131/60; PULSE 74; RESP 20
[2023-11-04 12:00] VITALS: BP 119/62; PULSE 61; RESP 20
[2023-11-04] MEDS ORDERED: KETOROLAC 15MG/ML VIAL (15MG/ML) IV PRN (13:00)
== END 2023-11-04 12:45 | disposition home or self-care (01) ==
LOC: EDH 19:23 → EDHIP 20:55 → 3CH 11-02 07:28
PROVIDERS: ADMIT Internal Medicine Critical Care Medicine; ATTEND Internal Medicine Critical Care Medicine
DX: R07.2 Precordial pain (principal); I11.9 Hypertensive heart disease without heart failure; E87.6 Hypokalemia; E87.1 Hypo-osmolality and hyponatremia; I16.1 Hypertensive emergency; E11.9 Type 2 diabetes mellitus without complications; I20.9 Angina pectoris, unspecified; E66.01 Morbid (severe) obesity due to excess calories; E78.00 Pure hypercholesterolemia, unspecified; G20.A1 Parkinson's disease without dyskinesia, without mention of fluctuations; E03.9 Hypothyroidism, unspecified; M19.90 Unspecified osteoarthritis, unspecified site; G30.8 Other Alzheimer's disease; F02.80 Dementia in other diseases classified elsewhere, unspecified severity, without behavioral disturbance, psychotic disturbance, mood disturbance, and anxiety; K21.9 Gastro-esophageal reflux disease without esophagitis; Z86.711 Personal history of pulmonary embolism; Z68.36 Body mass index [BMI] 36.0-36.9, adult; Z90.710 Acquired absence of both cervix and uterus; Z96.653 Presence of artificial knee joint, bilateral; Z79.82 Long term (current) use of aspirin
CPT/HCPCS: 96372 ×4; 99285; 82550 ×2; 84484 ×5; 80053 ×2; 83880 ×2; 85025 ×3; 36415 ×4; 71045; 93005; 96365; 96375 ×2; 96376 ×3; 96361 ×3; 96366 ×2; 84443; 83735 ×2; 84100 ×2; 80048 ×2; 82948 ×11; 71270; 93306; 93356; 97161; 97116 ×2; 97530 ×2; 85027; 84145; G0378 ×61; J2270; J1650 ×4; J1815 ×5; J3475 ×2; J7120; J3490 ×4; Q9967; J1885 ×4

== ENCOUNTER 2025-08-06 08:27 | Emergency (ER) | payer OTHER, MEDICARE ==
[~2025-08-06] VITALS: Ht 149.9 cm; Wt 82.6 kg
[~2025-08-06 08:27] MED LIST changes: +ASCO500T20 PO; -ASPI-1443 PO; +ATOR20TA65 PO; -AUD IH; -BENZ-39 PO; -CEPH500T PO; +DONE5TAB33 PO; +FERR-72 PO; +GABA-529 PO; +GLIP10TA16 PO; +INSLAN SQ; +ISOS30TA92 PO; +LIDO-15 TP; +METF-1151 PO; +NAPR-1194 PO; +OMEP40CA21 PO; +POTA99TA17 PO; +PRIM50TA23; +PROP40TA7 PO; +ROPI1TAB46 PO; +VALS80TA30 PO
--- NOTE | 2025-08-06 08:43 | NUR ---
PATIENT IN ROOM
--- NOTE | 2025-08-06 09:16 | EKG ---
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
[2025-08-06 09:18] LABS: IMMATURE GRANULOCYTE ABSOLUTE 0.02 K/uL (0-1); NUCLEATED RED BLOOD CELLS 0.0 % (0.0-0.19); PLATELET COUNT (AUTO) 189 K/uL (130-400); RED BLOOD CELL COUNT(AUTO) 3.74 MIL/uL (4.00-5.50); RED CELL DISTRIBUTION WIDTH 12.8 % (11.0-15.5); WHITE BLOOD COUNT (AUTO) 6.0 K/uL (4.8-10.8)
[2025-08-06 09:26] LABS: CREATININE 0.6 mg/dL (0.5-1.0); GLOMERULAR FILTR. RATE CALC 93.0 mL/min (>90); GLUCOSE,RANDOM 243.0 mg/dL (70-105); SODIUM SERUM 139.0 mmol/L (136-145); UREA NITROGEN, BLOOD 11.0 mg/dL (7-18)
[2025-08-06 09:28] LABS: INR 1.04 (0.85-1.15)
--- NOTE | 2025-08-06 10:04 | HMCIMG ---
EXAM: CT Head Without IV contrast. CLINICAL HISTORY: Headache TECHNIQUE: Axial computed tomography images of the head/brain without intravenous contrast. COMPARISON: None provided. FINDINGS: BRAIN: No evidence of acute hemorrhage. No mass lesion. No CT evidence for acute territorial infarct. No midline shift or extra-axial collections. Mild generalized cerebral volume loss is noted. An empty sella configuration is present. VENTRICLES: No hydrocephalus. ORBITS: The orbits are unremarkable. SINUSES AND MASTOIDS: The paranasal sinuses and mastoid air cells are clear. BONES: No fracture. Hyperostosis frontalis interna is noted. SOFT TISSUES: Unremarkable. IMPRESSION: No acute intracranial abnormality. Mild generalized cerebral volume loss. MRI brain may be considered for further evaluation if clinically indicated. /[place]
[2025-08-06 11:49] LABS: APPEARANCE,URINE CLEAR (CLEAR); GLUCOSE, URINE (UA) 300 mg/dL (NEGATIVE); LEUKOCYTE ESTERASE ,URINE NEGATIVE Leu/uL (NEGATIVE); NITRATE,URINE NEGATIVE (NEGATIVE); OCCULT BLOOD,URINE NEGATIVE (NEGATIVE)
[2025-08-06 11:54] LABS: ADD UA MICROSCOPIC YES
[2025-08-06 11:55] LABS: SQUAMOUS EPITHELIAL CELL,UR RARE /HPF (0-2)
[2025-08-06] MEDS ORDERED: MECL-226 PO (12:47)
--- NOTE | 2025-08-06 12:47 | ERN ---
General Chief Complaint: Multiple Complaints Stated Complaint: MULTIPLE COMPLAINTS Time Seen by MD: 08:37 History of Present Illness Initial Comments 75-year-old female came in for dizziness and headache. Patient otherwise has no concerns. Allergies: Coded Allergies: No Known Drug Allergies (Unverified Allergy, 04/14/12) Home Meds Active Scripts Lidocaine HCl (Lidocaine HCl) 4 % Adh..patch, 1 PATCH TP DAILY for 30 Days, #30 PATCH 0 Refills Prov:UMAIR DELGADO PAC 06/27/24 Reported Medications Valsartan (Valsartan) 80 Mg Tablet, 1 TAB PO AM 05/07/25 Donepezil HCl (Donepezil HCl) 5 Mg Tablet, 1 TAB PO HS 05/07/25 Primidone (Mysoline) 50 Mg Tablet, 50 MG HS 05/07/25 Omeprazole (Omeprazole) 40 Mg Capsule.dr, 1 CAP PO DAILY 05/07/25 Naproxen (Naproxen) 500 Mg Tablet, 1 TAB PO [id number] PRN for PAIN LEVEL 4 TO 6 05/07/25 Insulin Glargine,Hum.rec.anlog (Lantus) 100 Unit/Ml Inj, 45 UNITS SQ BID, ML 06/26/24 Ascorbic Acid (Vitamin C) 500 Mg Tablet, 1 TAB PO DAILY for 30 Days, #30 TAB 0 Refills 06/26/24 Potassium Gluconate (Potassium Gluconate) 595 Mg (99 Mg) Tablet, 99 MG PO DAILY, TAB 06/26/24 Ferrous Sulfate (Ferrous Sulfate) 325 Mg (65 Mg Iron) Tablet, 1 TAB PO DAILY for 30 Days, #30 TAB 0 Refills 06/26/24 Metformin HCl (Metformin HCl ER) 1,000 Mg [id number], 1 TAB PO BID for diabetes for 30 Days, #60 TAB 0 Refills 06/26/24 Levothyroxine Sodium (Levothyroxine Sodium) 112 Mcg Tablet, 1 TAB PO DAILY for 30 Days, #30 TAB 0 Refills 06/26/24 Atorvastatin Calcium (Atorvastatin Calcium) 20 Mg Tablet, 1 TAB PO DAILY for 30 Days, #30 TAB 0 Refills 06/26/24 Gabapentin (Gabapentin) 100 Mg Capsule, 1 CAP PO TID for 30 Days, #90 CAP 0 Refills 06/26/24 Glipizide (Glipizide) 10 Mg Tablet, 1 TAB PO BID for 30 Days, #60 TAB 0 Refills 06/26/24 Famotidine (Famotidine) 20 Mg Tablet, 20 MG PO HSPRN PRN for INDIGESTION, TAB 06/26/24 Propranolol HCl (Propranolol HCl) 40 Mg Tablet, 1 TAB PO BID for 30 Days, #60 TAB 0 Refills 06/26/24 Ropinirole HCl (Ropinirole HCl) 1 Mg Tablet, 1 TAB PO HS for 30 Days, #30 TAB 0 Refills 06/26/24 Isosorbide Mononitrate (Isosorbide Mononitrate ER) 30 Mg Tab.er.24h, 1 TAB PO DAILY for 30 Days, #30 TAB 0 Refills 06/26/24 Carbidopa/Levodopa (Carbidopa-Levodopa 25-250 Tab) 1 Each Tablet, 1 TAB PO QID 02/25/21 Ergocalciferol (Vitamin D2) (Vitamin D2) 1,250 Mcg Capsule, 1 CAP PO QWEEK 02/25/21 Past Medical History Past Medical History: Hypertension Medical History Other: PARKINSON'S , THYROID ISSUES Past Surgical History: Hysterectomy, Cholecystectomy Surgical History Other: BILAT KNEES Social History Social History: Negative, Lives with family Female( History) History: Not Applicable ROS Dictation Headache Physical Exam General Appearance: (+) no apparent distress, (+) apparent distress Orientation: (+) alert, (+) oriented x 3 Respiratory: (+) chest non-tender, (+) lungs clear Heart: (+) regular, (+) no gallop Gastrointestinal: (+) soft, (+) non-tender, (+) no organomegaly, (+) bowel sound present Back: (+) normal inspection, (+) no CVA tenderness Extremities: (+) normal range of motion, (+) non-tender Neurologic/Psychiatric: (+) normal speech, (+) no motor defecits, (+) no sensory deficits, (+) fitness assistant II-XII nml as tested, (+) normal gait, (+) normal mood/affect Results Laboratory and Microbiology Lab and Micro Result Laboratory Tests Test 08/06/25 09:14 08/06/25 10:17 White Blood Count 6.0 K/uL (4.8-10.8) Red Blood Count 3.74 MIL/uL (4.00-5.50) L Hemoglobin 11.3 g/dL (12.0-16.0) L Hematocrit 33.2 % (36-48) L Mean Corpuscular Volume 88.8 fL (79-99) Mean Corpuscular Hemoglobin 30.2 pg (27.0-33.0) Mean Corpuscular Hemoglobin Concent 34.0 g/dL (32.0-36.0) Red Cell Distribution Width 12.8 % (11.0-15.5) Platelet Count 189 K/uL (130-400) Mean Platelet Volume 10.0 fL (7.5-10.5) Immature Granulocyte % (Auto) 0.3 % (0-1) Neutrophils (%) (Auto) 59.4 % (40.0-77.0) Lymphocytes (%) (Auto) 30.4 % (21.0-51.0) Monocytes (%) (Auto) 6.2 % (3.0-13.0) Eosinophils (%) (Auto) 3.0 % (0.0-8.0) Basophils (%) (Auto) 0.7 % (0.0-5.0) Neutrophils # (Auto) 3.5 K/uL (1.8-7.7) Lymphocytes # (Auto) 1.8 K/uL (1.0-4.8) Monocytes # (Auto) 0.4 K/uL (0.1-1.0) Eosinophils # (Auto) 0.18 K/uL (0.00-0.70) Basophils # (Auto) 0.04 K/uL (0.00-0.20) Absolute Immature Granulocyte (auto 0.02 K/uL (0-1) Nucleated Red Blood Cells 0.0 % (0.0-0.19) Prothrombin Time 11.0 SEC (9.6-11.6) Prothromb Time International Ratio 1.04 (0.85-1.15) Activated Partial Thromboplast Time 27.1 SEC (26.3-35.5) Sodium Level 139 mmol/L (136-145) Potassium Level 4.8 mmol/L (3.5-5.1) Chloride Level 102 mmol/L (101-111) Carbon Dioxide Level 32 mmol/L (21-32) Blood Urea Nitrogen 11 mg/dL (7-18) Creatinine 0.6 mg/dL (0.5-1.0) Glomerular Filtration Rate Calc 93 mL/min (>90) Random Glucose 243 mg/dL (70-105) H Total Calcium 8.7 mg/dL (8.5-10.1) Troponin I High Sensitivity 9 ng/L (4-50) Urine Color LIGHT-YELLOW (YELLOW) Urine Appearance CLEAR (CLEAR) Urine pH 5.5 (5.0-8.0) Urine Specific [place] 1.026 (1.001-1.031) Urine Protein 20 mg/dL (NEGATIVE) H Urine Glucose (UA) 300 mg/dL (NEGATIVE) H Urine Ketones NEGATIVE mg/dL (NEGATIVE) Urine Occult Blood NEGATIVE (NEGATIVE) Urine Nitrate NEGATIVE (NEGATIVE) Urine Bilirubin NEGATIVE mg/dL (NEGATIVE) Urine Urobilinogen 0.2 mg/dL (0.2-1.0) Urine Leukocyte Esterase NEGATIVE [place]vana/uL Urine RBC 2-5 /HPF (0-1) H Urine WBC 0-1 /HPF (0-1) Urine Squamous Epithelial Cells RARE /HPF (0-2) Urine Bacteria RARE /HPF (None Seen) MDM MDM: Differential diagnosis: Rationale: Tests considered and ordered secondary to shared decision making include: Previous outside records reviewed: Old ER visits. Risk of complication and/or morbidity or mortality of patient management: None Medications-Per medication reconciliation Need for hospitalization: Patient does not meet criteria for hospitalization. Need for emergency major/minor surgery: No There are no social concerns with this patient. Prescription drug management Prescriptions will include symptomatic care Patient's prior external medical records from other ER visits were reviewed by me as indicated. Prior testing and results from previous visits were reviewed. Prior tests were taken into account with medical decision making and resource utilization, independent historian/historians were used to obtain complete medical history. I independently interpreted the test that were performed, results were reviewed by me and considered findings on radiology if ordered. Medical management and examination interpretation discussions were had by me with other qualified healthcare professionals as indicated for the patient's care. ED Course Orders Procedure Category Date Status Time 12 Lead Ekg Tracing- EKG 08/06/25 Complete Technical 08:37 Cbc With Differential LAB 08/06/25 Complete 08:37 Basic Metabolic Panel LAB 08/06/25 Complete 08:37 Pt And Ptt LAB 08/06/25 Complete 08:37 Troponin I High LAB 08/06/25 Complete Sensitivity 08:37 Ct Head/Brain W/O CT 08/06/25 Resulted Contrast 08:37 Ondansetron 4mg Inj PHA 08/06/25 Complete (Zofran 4mg Inj) 09:00 Acetaminophen 500mg PHA 08/06/25 Complete Tab (Tylenol 500mg T 09:00 Urinalysis Profile LAB 08/06/25 Complete 10:28 Meclizine Hcl 25 Mg PHA 08/06/25 Complete (Antivert 25 Mg) 11:00 Current Medications Medications (Trade) Dose Ordered Sig/Shira Route PRN Reason Start Time Stop Time Status Last Admin Dose Admin Acetaminophen (TYLenol 500MG TAB) 500 mg ONCE ONCE PO 08/06/25 09:00 08/06/25 09:01 DC 08/06/25 09:14 Meclizine HCl (ANTIvert 25 mg) 25 mg ONCE ONCE PO 08/06/25 11:00 08/06/25 11:01 DC 08/06/25 11:21 Ondansetron HCl (zoFRAN 4MG INJ) 4 mg ONCE ONCE IVP 08/06/25 09:00 08/06/25 09:01 DC 08/06/25 09:13 Vital Signs Date Time Temp Pulse Resp B/P (MAP) Pulse Ox O2 Delivery O2 Flow Rate FiO2 08/06/25 11:22 97.9 64 12 127/57 98 Room Air* 0 08/06/25 08:45 97.9 67 16 160/74 98 Room Air* 0 21 08/06/25 08:37 97.9 67 16 160/74 98 Room Air 0 DX & DISP Disposition: Discharge Departure Impression: Primary Impression: Headache Additional Impression: Dizziness Condition: Stable Scripts Meclizine HCl (Meclizine HCl) 12.5 Mg Tablet 1 TAB PO BID for dizziness for 10 Days, #20 TAB 0 Refills Prov: MANI QUINONEZ MD 08/06/25 Referrals: ILA FLANAGAN MD (PCP) MANI QUINONEZ MD Aug 06, 2025 12:47
[2025-08-06 12:57] VITALS: BP 122/55; PULSE 60; RESP 17; TEMP 97.9; O2SAT 98
== END 2025-08-06 12:58 | disposition home or self-care (01) ==
LOC: EDH 08:27
DX: R51.9 Headache, unspecified (principal); R42 Dizziness and giddiness; I10 Essential (primary) hypertension; G20.A1 Parkinson's disease without dyskinesia, without mention of fluctuations; Z79.890 Hormone replacement therapy; Z79.899 Other long term (current) drug therapy; Z79.84 Long term (current) use of oral hypoglycemic drugs; Z90.49 Acquired absence of other specified parts of digestive tract; Z90.710 Acquired absence of both cervix and uterus
CPT/HCPCS: 99285; 96374; 70450; 84484; 80048; 85025; 85610; 85730; 81001; 36415; 93005; J2405